=== PATIENT | male | born 1960 | race Caucasian/White ===

== ENCOUNTER 2017-09-13 21:41 | Emergency (ER) | payer OTHER ==
[~2017-09-13] VITALS: Ht 170.2 cm; Wt 81.2 kg
[2017-09-13 23:32] VITALS: BP 119/59
--- NOTE | 2017-09-13 23:41 | ED NECK/BACK PAIN COMPLAINT ---
History of Present Illness General Chief Complaint: Low Back Pain/Injury Stated Complaint: LOW BACK PAIN Source: patient, old records Exam Limitations: no limitations Vital Signs & Intake/Output Vital Signs & Intake/Output Vital Signs Date Time Temp Pulse Resp B/P B/P Pulse O2 O2 Flow FiO2 Mean Ox Delivery Rate 09/14 0003 Room Air 09/13 2332 97.4 66 18 119/59 96 Room Air 09/13 2201 97.0 74 18 124/84 98 Room Air ED Intake and Output 09/14 0000 09/13 1200 Intake Total Output Total Balance Patient 179 lb Weight Weight Reported by Patient Measurement Method Allergies Coded Allergies: Penicillins (UNKNOWN 12/23/15) Reconcile Medications Hydromorphone HCl (Dilaudid) 4 MG TABLET 1 TAB PO BID PRN BREAKTHROUGH BACK PAIN Triage Note: 57M STATES "I THINK I TWEAKED MY BACK YESTERDAY" AND HAS SEVERE LOW BACK PAIN THAT RADIATES DOWN RIGHT LEG IN WAVES. AMBULATES INDEPENDENTLY. HAS NOT TAKEN ANYTHING FOR PAIN. PAIN 9/10 AT THIS TIME. TAKES LYRICA FOR PERIPHERAL NEUROPATHY. DENIES LOSS OF B/B. DENIES KNOWN TRAUMA OR INJURY. Triage Nurses Notes Reviewed? yes Onset: Abrupt Duration: day(s): (1), constant Timing: recent history Quality/Severity: moderate Location: lumbar spine, paraspinous muscles Radiation: buttocks, upper legs Method of Injury: unknown Loss of Consciousness: no loss of consciousness Modifying Factors: movement, pain medication, rest Associated Symptoms: DENIES HPI: 57-year-old male with history of diabetes peripheral neuropathy chronic back pain for which she was previously and pain management presents to ER for evaluation today complaining of bilateral lower back pain radiating to the right knee since yesterday. The patient states that he is attempting to strengthen his core and was doing a abdominal plank prior to the symptoms beginning. He denies any recent trauma or fall. He denies any urinary or bowel incontinence. He states normally his chronic back pain radiates down his left leg however denies that today. No fever no chills no chest pain no urinary urgency frequency dysuria. He's been taking [id number] medications without improvement. He was previously on Dilaudid 4 mg for his chronic back pain in the past. (Natali SALDANA,Alfredo) Past History Travel History Traveled to [place] past 21 day No Medical History Any Pertinent Medical History? see below for history Neurological: PERIPHERAL NEUROPATHY EENT: NONE Cardiovascular: NONE Respiratory: emphysema Gastrointestinal: NONE Hepatic: NONE Renal: NONE Musculoskeletal: degen joint disease Psychiatric: anxiety, bipolar disease, depression Endocrine: diabetes Blood Disorders: NONE Cancer(s): NONE Surgical History Surgical History: non-contributory Psychosocial History What is your primary language Bel[place]ian Tobacco Use: Never used Family History Hx Contributory? No (Alfredo Ford) Review of Systems Review of Systems Constitutional: Reports: see HPI. Comments Review of systems: See HPI, All other systems negative. Constitutional, no chills no fever, HEENT: no sore throat no congestion, Cardiovascular: No chest pain , no palpitation Skin: no rashes, no change in skin Respiratory: No dyspnea no cough GI: No nausea no vomiting, no diarrhea, no bloating/constipation : No dysuria No hematuria, no frequency Muscle skeletal: No joint pain, back pain, no neck pain, Neurologic: , no headache Heme/endocrine: No bruising (Alfredo Ford) Physical Exam Physical Exam General Appearance: well developed/nourished, alert, awake Neck: normal inspection, supple, full range of motion Comments: Well-developed well-nourished patient in no apparent distress. HEENT: Atraumatic, extraocular motion intact Neck: Supple, FROM Back: FROM no midline tenderness bilateral paralumbar muscle tenderness to palpation Cardiovascular: Regular rate and rhythms no murmurs rubs or gallops, Respiratory: Chest nontender.There were no bony deformities, no asymmetry. No respiratory distress. Patient speaking in full complete sentences. Breath sounds clear to auscultation bilaterally: NO W/R/R Abdomen: Soft nontender no rebound no guarding Extremities: Positive straight leg raise to bilateral lower extremities, 5 out of 5 strength noted to bilateral lower extremities full range of motion Neuro: awake, alert, and oriented to person, place and time. There were no obvious focal neurologic abnormalities. Skin: Warm & dry;No appreciable rash on exposed skin Psych: Mood affect normal, normal memory normal judgment. Core Measures CVA/TIA Diagnosis: No (Alfredo Ford) Progress Differential Diagnosis: cauda equina syn, herniated disc, myofascial strain, pyelo/UTI, sciatica, spinal cord inj, T/L spine injury, ureterolithiasis Plan of Care: Current Medications Sig/Thiago Start time Last Medication Dose Stop Time Status Admin Hydromorphone HCl 1 MG ONCE ONE 09/13 2344 UNVr (Dilaudid) 09/13 2345 Patient clinically looks well. Patient has no evidence of radiculopathy. No urinary bowel dysfunction. No numbness in the genital area. Strength intact. Gross sensation intact. Patient resting comfortably and in no apparent distress. Pain is worse with range of motion. Pain is reproducible IN back with no bruising or ecchymosis noted. . Patient is to follow-up with primary care doctor. May need MRI of the lower back at some point time. No concerns for cauda equina at this point time. I considered this diagnosis but patient does not have any symptoms consistent with cauda equina. Patient has no secondary causes of back pain. No cardiac, pulmonary, or abdominal complaints. No abdominal pain on exam. Cardiac pulmonary exam within normal limits. No rashes, afebrile, denies recent weight loss, dizziness, lightheadedness (Alfredo Ford) Departure Departure Time of Disposition: 2350 Disposition: HOME OR SELF CARE Condition: Stable Clinical Impression Primary Impression: Lumbar radiculopathy Referrals: Daron Osorio MD (PCP/Family) Additional Instructions: Follow up with your Primary care physician tomorrow. Dilaudid for breakthrough pain -use caution as this is a narcotic and highly addictive. No driving or drinking alcohol while taking. Interchange patient he to your back return with any concerns. Departure Forms: Customer Survey General Discharge Information Prescriptions: Current Visit Scripts Hydromorphone HCl (Dilaudid) 1 TAB PO BID PRN BREAKTHROUGH BACK PAIN #8 TAB (Alfredo Ford) PA/RN ORTHOPEDIC Co-Sign Statement Statement: ED Attending supervision documentation- [] I saw and evaluated the patient. I have also reviewed all the pertinent lab results and diagnostic results. I agree with the findings and the plan of care as documented in the PA's/RN ORTHOPEDIC's documentation. [X] I have reviewed the ED Record and agree with the PA's/RN ORTHOPEDIC's documentation. [] Additions or exceptions (if any) to the PAs/RN ORTHOPEDIC's note and plan are summarized below: [] (Joe ABEBE,Heath Beauchamp)
[2017-09-13] MEDS ORDERED: DILAUDID4 M1 PO (23:52)
== END 2017-09-14 00:04 ==
LOC: ERH 21:41
DX: M54.16 Radiculopathy, lumbar region (principal)
CPT/HCPCS: 96372